=== PATIENT | male | born 1945 ===

== ENCOUNTER 2022-01-14 21:52 | Inpatient (IN) | payer OTHER ==
[~2022-01-14] VITALS: Ht 167.6 cm; Wt 113.4 kg
--- NOTE | 2022-01-14 22:02 | NUR ---
SE RECIBE A PTE EN AMBULANCIA, PTE REFIERE VENIR POR HERNIA DE TRANSFER DE [facility]. PTE REFIERE TENER CATETER Y PADECER DE FALLO RENAL. PTE REFIERE NO FUE A DIALISIS HOY. SE MIDEN S/V A PTE Y SE COLOCA EN ALFONZO.
--- NOTE | 2022-01-14 22:43 | NUR ---
SE EDUCA A PTE SOBRE TX MEDCIO ZORAIDA REFIERE ENTENDER. SE JOVI MUESTRAS DE LABORATORIO UTILIZANDO MEDIDAS ASEPTICAS. SE NOTIFICA RX Y SE REALIZA EKG.
== END 2022-01-18 17:55 | disposition home or self-care (01) | DRG 353 ==
LOC: ER 21:52 → MEDJ 01-15 04:15 → EDBD 01-15 04:15 → MEDJ 01-15 13:03
PROVIDERS: ADMIT Internal Medicine; ATTEND Internal Medicine
PROC: B24BZZZ Ultrasonography of Heart with Aorta (ICD-10-PCS; 2022-01-15)
PROC: 5A1D70Z Performance of Urinary Filtration, Intermittent, Less than 6 Hours Per Day (ICD-10-PCS; 2022-01-16)
PROC: 0WUF0JZ Supplement Abdominal Wall with Synthetic Substitute, Open Approach (ICD-10-PCS; principal; 2022-01-17)
DX: K40.30 Unilateral inguinal hernia, with obstruction, without gangrene, not specified as recurrent (principal); N18.6 End stage renal disease; I13.2 Hypertensive heart and chronic kidney disease with heart failure and with stage 5 chronic kidney disease, or end stage renal disease; K57.32 Diverticulitis of large intestine without perforation or abscess without bleeding; E11.22 Type 2 diabetes mellitus with diabetic chronic kidney disease; Z99.2 Dependence on renal dialysis; Z79.4 Long term (current) use of insulin; E78.49 Other hyperlipidemia; I50.9 Heart failure, unspecified; E03.9 Hypothyroidism, unspecified